=== PATIENT | male | born 1970 | race Hispanic/Latino ===

== ENCOUNTER 2022-04-11 15:24 | Inpatient (IN) | payer BC, OTHER ==
[~2022-04-11] VITALS: Ht 175.3 cm; Wt 113.4 kg
[2022-04-11 16:45] LABS: BASOPHILS % (AUTO) 0.8 % (0.0-5.0); EOSINOPHILS % (AUTO) 1.1 % (0.0-8.0); HEMATOCRIT 22.9 % (42-54); MEAN CORPUSCULAR HEMOGLOBIN 23.8 pg (27.0-33.0); MEAN CORPUSCULAR HGB CONC 30.1 g/dL (32.0-36.0); MONOCYTES % (AUTO) 15.7 % (3.0-13.0); NEUTROPHILS % (AUTO) 68.7 % (40.0-77.0); PLATELET COUNT (AUTO) 89 K/uL (130-400); RED CELL DISTRIBUTION WIDTH 18.5 % (11.0-15.5); WHITE BLOOD COUNT (AUTO) 8.5 K/uL (4.8-10.8)
[2022-04-11 16:55] LABS: CREATININE 1.3 mg/dL (0.5-1.5); POTASSIUM 3.6 mmol/L (3.5-5.1)
[2022-04-11 17:00] LABS: ALBUMIN 2.3 g/dL (3.5-5.0); TOTAL PROTEIN, SERUM 5.5 g/dL (6.0-8.3)
[2022-04-11] MEDS ORDERED: ONDANSETRON 4MG INJ IVP ONE (17:30)
[2022-04-11] MEDS ORDERED: OCTREOTIDE ACETATE 100 MCG/ML AMP IV ONE (17:30)
[2022-04-11] MEDS ORDERED: OCTREOTIDE ACETATE 500 MCG in 0.9%NACL 100ML 97.5 ML IV SCH (17:30)
[2022-04-11] MEDS ORDERED: 0.9% NACL 500ML IV.SOLN 500 ML IV ONE (17:30)
[2022-04-11] MEDS ORDERED: PANTOPRAZOLE 40 MG/VIAL IVP ONE (17:30)
[2022-04-11] MEDS ORDERED: PANTOPRAZOLE 40MG INJ 80 MG in 0.9%NACL 100ML 100 ML IVP SCH (17:30)
[2022-04-11 17:46] LABS: INR 1.25 (0.85-1.15); PROTHROMBIN TIME 13.5 SEC (9.6-11.6)
[2022-04-11 17:48] LABS: PARTIAL THROMBOPLASTIN TIME 26.8 SEC (26.3-35.5)
[2022-04-11] MEDS ORDERED: IOHEXOL 350 MG/ML 100ML INFUS..BTL IV ONE (18:12)
[2022-04-11] MEDS ORDERED: LACTULOSE 20 GM/30 ML UDCUP PO PRN (19:00)
[2022-04-11] MEDS ORDERED: LORAZEPAM 2 MG/ML 1 ML VIAL IVP PRN (19:00)
[2022-04-11] MEDS ORDERED: CHLORDIAZEPOXIDE HCL 25 MG CAP PO PRN (19:00)
[2022-04-11] MEDS ORDERED: PHARMACY COMMUNICATION MISC PRN (19:00)
[2022-04-11] MEDS ORDERED: ONDANSETRON 4MG INJ IV PRN (19:00)
[2022-04-11] MEDS: THIAMINE HCL 100 MG, FOLIC ACID 1 MG in 0.9%NACL 1000ML 1,000 ML IV SCH (20:42)
[2022-04-12] VITALS (24 sets, daily range): BP systolic 98–145; BP diastolic 50–70
[2022-04-12] MEDS: INSULIN HUMULIN R 100 UNIT/ML 3ML SQ SCH ×5 (05:44→20:34)
[2022-04-12 09:12] LABS: BASOPHILS % (AUTO) 0.7 % (0.0-5.0); EOSINOPHILS % (AUTO) 3.8 % (0.0-8.0); HEMATOCRIT 22.9 % (42-54); LYMPHOCYTES % (AUTO) 18.3 % (21.0-51.0); MEAN CORPUSCULAR HEMOGLOBIN 24.4 pg (27.0-33.0); MEAN CORPUSCULAR HGB CONC 30.6 g/dL (32.0-36.0); MEAN CORPUSCULAR VOLUME 79.8 fL (79-99); MONOCYTES % (AUTO) 15.6 % (3.0-13.0); NEUTROPHILS % (AUTO) 61.2 % (40.0-77.0); PLATELET COUNT (AUTO) 71 K/uL (130-400); RED BLOOD CELL COUNT(AUTO) 2.87 MIL/uL (4.50-6.20); RED CELL DISTRIBUTION WIDTH 18.7 % (11.0-15.5); WHITE BLOOD COUNT (AUTO) 5.5 K/uL (4.8-10.8)
[2022-04-12 09:27] LABS: POTASSIUM 3.4 mmol/L (3.5-5.1)
[2022-04-12 09:31] LABS: TOTAL PROTEIN, SERUM 4.8 g/dL (6.0-8.3)
[2022-04-12] MEDS ORDERED: 0.9%NACL 1000ML 1,000 ML IV ONE (10:25)
[2022-04-12] MEDS ORDERED: LIDOCAINE HCL-MPF 2% 10ML AMP IJ ONE (10:52)
[2022-04-12] MEDS ORDERED: PROPOFOL 10 MG/ML 20ML VIAL IV ONE ×2 (10:52→11:43)
[2022-04-12 17:41] LABS: HEMATOCRIT 24.1 % (42-54)
[2022-04-12] MEDS: THIAMINE HCL 100 MG, FOLIC ACID 1 MG in 0.9%NACL 1000ML 1,000 ML IV SCH (17:41)
[2022-04-12] MEDS ORDERED: MAGNESIUM 2GM PREMIX 50ML 50 ML IV PRN (18:00)
[2022-04-12] MEDS ORDERED: POTASSIUM CHLORIDE 10% ELIXIR 20 MEQ/15 ML UDCUP PO PRN (18:00)
[2022-04-12] MEDS ORDERED: LIDOCAINE HCL-MPF 1% 2ML VIAL IV PRN (18:00)
[2022-04-12] MEDS ORDERED: POTASSIUM CHLORIDE 20MEQ/100ML 100 ML IV PRN (18:00)
[2022-04-12] MEDS: KCL 20 MEQ ERTAB PO PRN ×2 (18:18→21:06)
[2022-04-12] MEDS: PANTOPRAZOLE 40 MG/VIAL IVP SCH (21:06)
[2022-04-13] VITALS: BP 138/66
[2022-04-13 04:00] VITALS: BP 129/60
[2022-04-13 05:56] LABS: HEMATOCRIT 21.6 % (42-54); MEAN CORPUSCULAR HEMOGLOBIN 25.3 pg (27.0-33.0); MEAN CORPUSCULAR HGB CONC 32.4 g/dL (32.0-36.0); RED BLOOD CELL COUNT(AUTO) 2.77 MIL/uL (4.50-6.20); RED CELL DISTRIBUTION WIDTH 19.1 % (11.0-15.5)
[2022-04-13] MEDS: INSULIN HUMULIN R 100 UNIT/ML 3ML SQ SCH ×2 (06:00→12:42)
[2022-04-13 06:03] LABS: CREATININE 0.9 mg/dL (0.5-1.5); MAGNESIUM 1.6 mg/dL (1.80-2.40); POTASSIUM 3.4 mmol/L (3.5-5.1)
[2022-04-13] MEDS: KCL 20 MEQ ERTAB PO PRN (06:39)
[2022-04-13 08:00] VITALS: BP 128/48
[2022-04-13] MEDS: PANTOPRAZOLE 40 MG/VIAL IVP SCH (08:30)
[2022-04-13] MEDS ORDERED: PANT40TA54 PO (08:38)
[2022-04-13 08:57] LABS: % IRON SATURATION 7.9 % (30-44)
[2022-04-13] MEDS ORDERED: FERS325 PO (11:17)
[2022-04-13 12:00] VITALS: BP 131/58
== END 2022-04-13 15:30 | disposition home or self-care (01) | DRG 432 ==
LOC: EDH 15:24 → EDHIP 18:59 → 3CH 04-12 00:15
PROVIDERS: ADMIT Hospitalist; ATTEND Hospitalist
PROC: 30233N1 Transfusion of Nonautologous Red Blood Cells into Peripheral Vein, Percutaneous Approach (ICD-10-PCS; 2022-04-11)
PROC: 06L38CZ Occlusion of Esophageal Vein with Extraluminal Device, Via Natural or Artificial Opening Endoscopic (ICD-10-PCS; principal; 2022-04-12)
DX: K74.60 Unspecified cirrhosis of liver (principal); E43 Unspecified severe protein-calorie malnutrition; I85.11 Secondary esophageal varices with bleeding; K29.01 Acute gastritis with bleeding; D62 Acute posthemorrhagic anemia; E87.1 Hypo-osmolality and hyponatremia; R18.8 Other ascites; K76.6 Portal hypertension; Z20.822 Contact with and (suspected) exposure to COVID-19; D69.6 Thrombocytopenia, unspecified; R74.01 Elevation of levels of liver transaminase levels; E66.01 Morbid (severe) obesity due to excess calories; I10 Essential (primary) hypertension; E11.9 Type 2 diabetes mellitus without complications; F17.200 Nicotine dependence, unspecified, uncomplicated; E87.6 Hypokalemia; F17.210 Nicotine dependence, cigarettes, uncomplicated; K31.89 Other diseases of stomach and duodenum
CPT/HCPCS: 36415; 36430; 43244; 74177; 80048; 80053; 82140; 82270; 82948; 83540; 83550; 83735; 85014; 85018; 85025; 85027; 85610; 85730; 86677; 86850; 86900; 86901; 86923; 87635; 93005; C9113; G0378; J2354; J2405; J2704; J3411; J3490; J7030; J7040; P9016; Q9967

== ENCOUNTER 2023-04-02 19:27 | Emergency (ER) | payer BC ==
[~2023-04-02] VITALS: Ht 167.6 cm; Wt 117.5 kg
[~2023-04-02 19:27] MED LIST: FERS325 PO; PANT40TA54 PO
[2023-04-02 20:05] VITALS: BP 149/79; PULSE 81; RESP 18
== END 2023-04-02 22:10 | disposition left against medical advice (07) ==
LOC: EDH 19:27
DX: S81.832A Puncture wound without foreign body, left lower leg, initial encounter (principal); Z53.21 Procedure and treatment not carried out due to patient leaving prior to being seen by health care provider; X58.XXXA Exposure to other specified factors, initial encounter; Y93.89 Activity, other specified; Y92.89 Other specified places as the place of occurrence of the external cause; Y99.8 Other external cause status